=== PATIENT | female | born 1950 | race Caucasian/White ===

== ENCOUNTER 2016-11-18 18:04 | Emergency (ER) | payer MEDICARE, OTHER ==
[2016-11-18] MEDS ORDERED: SODIUM CHLORIDE 0.9% 1,000 ML IV STA (19:50)
[2016-11-18] MEDS ORDERED: ONDANSETRON 4 MG/2 ML VIAL IVP STA (19:50)
[2016-11-18] MEDS ORDERED: HYDROmorphone 1 MG/ML 1 ML SYRINGE IVP STA ×2 (19:50→20:02)
--- NOTE | 2016-11-18 20:39 | ED ---
Abdominal Pain HPI - General Chief Complaint: Abdominal Pain Stated Complaint: Abd pain Time Seen by Provider: 11/18/16 19:43 Source: patient, RN notes reviewed, old records reviewed Mode of arrival: wheelchair Limitations: no limitations - History of Present Illness Initial Comments: 65-year-old female presenting with chief complaint of left upper quadrant pain for the past day. Patient reports that she has a history of pancreatitis and feels very similar to that episode. She denies any vomiting or nausea. She states that the pain does not go to her back. Patient reports that she had a normal bowel movement today. She did eat last at noon. Patient states that she has no history of alcoholism. She states she does not know why she had pancreatitis in the past. She reports that she has history of but denies any other surgical history. Patient denies any fever or chills. Patient denies any recent fever, chills, shortness of breath, chest pain, back pain, abdominal pain, nausea vomiting, numbness or tingling, dysuria or hematuria, constipation or diarrhea, headaches or visual changes, or any other current symptoms - Related Data Home Medications Medication Instructions Recorded Confirmed Lisinopril-Hctz 20-12.5 mg 1 tab PO DAILY 09/19/13 11/18/16 [Zestoretic 20-12.5] Levothyroxine Sodium 100 mcg PO DAILY 11/18/16 11/18/16 Multivitamins, Thera [Multivitamin 1 tab PO DAILY 11/18/16 11/18/16 (formulary)] Previous Rx's Medication Instructions Recorded Ondansetron Odt [Zofran Odt] 4 mg PO Q8HR PRN #12 tab 11/18/16 Sucralfate [Carafate] 1 gm PO BID #20 tablet 11/18/16 Allergies Allergy/AdvReac Type Severity Reaction Status Date / Time hydromorphone HCl AdvReac Nausea & Verified 11/18/16 19:14 [From Dilaudid] Vomiting Review of Systems ROS Statement: Those systems with pertinent positive or pertinent negative responses have been documented in the HPI. ROS Other: All systems not noted in ROS Statement are negative. Past Medical History Past Medical History: Heart Failure, Hypertension Additional Past Medical History / Comment(s): PANCREATITIS, DEGENERATIVE DISC DISEASE History of Any Multi-Drug Resistant Organisms: MRSA Date of last positivie culture/infection: 6-7 YEARS MDRO Source:: RIGHT ABDOMEN Past Surgical History: Orthopedic Surgery, Tubal Ligation Past Psychological History: No Psychological Hx Reported Smoking Status: Never smoker Past Alcohol Use History: None Reported Past Drug Use History: None Reported General Exam Limitations: no limitations General appearance: alert, in no apparent distress Head exam: Present: atraumatic, normocephalic, normal inspection Eye exam: Present: normal appearance, PERRL, EOMI. Absent: scleral icterus, conjunctival injection, periorbital swelling ENT exam: Present: normal exam, mucous membranes moist Neck exam: Present: normal inspection. Absent: tenderness, meningismus, lymphadenopathy Respiratory exam: Present: normal lung sounds bilaterally. Absent: respiratory distress, wheezes, rales, rhonchi, stridor Cardiovascular Exam: Present: regular rate, normal rhythm, normal heart sounds. Absent: systolic murmur, diastolic murmur, rubs, gallop, clicks GI/Abdominal exam: Present: soft, tenderness (LUQ tenderness), normal bowel sounds. Absent: distended ( ), guarding, rebound, rigid Extremities exam: Present: normal inspection, full ROM, normal capillary refill. Absent: tenderness, pedal edema, joint swelling, calf tenderness Back exam: Present: normal inspection Neurological exam: Present: alert, oriented X3, CN II-XII intact Psychiatric exam: Present: normal affect, normal mood Skin exam: Present: warm, dry, intact, normal color. Absent: rash Course Vital Signs 11/18/16 11/18/16 11/18/16 18:12 21:20 21:57 Temperature 98.1 F Pulse Rate 102 H 67 82 Respiratory 20 16 16 Rate Blood Pressure 134/88 135/71 112/59 O2 Sat by Pulse 98 99 95 Oximetry 11/18/16 11/18/16 22:58 23:08 Temperature 97.9 F 98 F Pulse Rate 74 76 Respiratory 16 16 Rate Blood Pressure 120/70 97/56 O2 Sat by Pulse 95 98 Oximetry Medical Decision Making - Medical Decision Making 65-year-old female presenting with chief complaint of left upper quadrant pain for the past day. Patient reports that she has a history of pancreatitis and feels very similar to that episode. She denies any vomiting or nausea. She states that the pain does not go to her back. Patient reports that she had a normal bowel movement today. She did eat last at noon. Patient states that she has no history of alcoholism. She states she does not know why she had pancreatitis in the past. She reports that she has history of but denies any other surgical history. Patient lab work was reviewed, and there was evidence of mild leukocytosis. Patient recieved CT abdomen and pelvis, patient CT negative for any acute process. Patient is feeling better after medication. She was reevaluated and abdomen is soft, non tender. Patient will be discharged and adbised to follow up with PCP. - Lab Data Result diagrams: 11/18/16 20:26 11/18/16 20:26 Lab Results 11/18/16 11/18/16 11/18/16 Range/Units 20:26 20:26 20:26 WBC 15.1 H (3.8-10.6) k/uL RBC 4.94 (3.80-5.40) m/uL Hgb 14.9 (11.4-16.0) gm/dL Hct 44.9 (34.0-46.0) % MCV 91.1 (80.0-100.0) fL MCH 30.1 (25.0-35.0) pg MCHC 33.1 (31.0-37.0) g/dL RDW 13.8 (11.5-15.5) % Plt Count 224 (150-450) k/uL Neutrophils % 86 % Lymphocytes % 10 % Monocytes % 3 % Eosinophils % 0 % Basophils % 0 % Neutrophils # 12.9 H (1.3-7.7) k/uL Lymphocytes # 1.5 (1.0-4.8) k/uL Monocytes # 0.5 (0-1.0) k/uL Eosinophils # 0.0 (0-0.7) k/uL Basophils # 0.1 (0-0.2) k/uL Sodium 141 (137-145) mmol/L Potassium 4.4 (3.5-5.1) mmol/L Chloride 104 (98-107) mmol/L Carbon Dioxide 25 (22-30) mmol/L Anion Gap 12 mmol/L BUN 24 H (7-17) mg/dL Creatinine 1.05 H (0.52-1.04) mg/dL Est GFR (MDRD) Af Amer >60 (>60 ml/min/1.73 sqM) Est GFR (MDRD) Non-Af 53 (>60 ml/min/1.73 sqM) Glucose 121 H (74-99) mg/dL Calcium 9.5 (8.4-10.2) mg/dL Total Bilirubin 0.8 (0.2-1.3) mg/dL AST 31 (14-36) U/L ALT 35 (9-52) U/L Alkaline Phosphatase 106 (38-126) U/L Total Protein 7.6 (6.3-8.2) g/dL Albumin 3.9 (3.5-5.0) g/dL Amylase 46 (30-110) U/L Lipase 90 (23-300) U/L Urine Color Yellow Urine Appearance Clear (Clear) Urine pH 5.0 (5.0-8.0) Ur Specific [place] 1.014 (1.001-1.035) Urine Protein Negative (Negative) Urine Glucose (UA) Negative (Negative) Urine Ketones Negative (Negative) Urine Blood Negative (Negative) Urine Nitrite Negative (Negative) Urine Bilirubin Negative (Negative) Urine Urobilinogen <2.0 (<2.0) mg/dL Ur Leukocyte Esterase Negative (Negative) - Radiology Data Radiology results: report reviewed CT abdomen and pelvis with contrast are negative for anyacute process. Disposition Clinical Impression: Abdominal pain Disposition: HOME SELF-CARE Condition: Good Instructions: Abdominal Pain (ED) Additional Instructions: Patient advised to have a relatively clear liquid diet for the next 48 hours. Take the medication as prescribed. Return to the emergency department if any alarming signs or symptoms occur. Follow-up with her primary care provider on Monday. Prescriptions: Ondansetron Odt [Zofran Odt] 4 mg PO Q8HR PRN #12 tab PRN Reason: Nausea Sucralfate [Carafate] 1 gm PO BID #20 tablet Referrals: Vic Pollack DO [Primary Care Provider] - 1-2 days Taj Ochoa MD [STAFF PHYSICIAN] - 1-2 days Time of Disposition: 22:58
[2016-11-18 20:48] LABS: Appearance,Urine Clear (Clear); Basophils # (A) 0.1 k/uL (0-0.2); Basophils % (A) 0 %; Bilirubin,Urine Negative (Negative); CHCM 33.1; Eosinophils % (A) 0 %; Glucose,Urine (UA) Negative (Negative); HCT 44.9 % (34.0-46.0); HDW 2.33; HGB 14.9 gm/dL (11.4-16.0); Ketones,Urine Negative (Negative); Leukocyte Esterase,Urine Negative (Negative); Luc # (Auto) 0.11; Luc % (Auto) 1; Lymphocytes # (A) 1.5 k/uL (1.0-4.8); Lymphocytes % (A) 10 %; MCH 30.1 pg (25.0-35.0); MCHC 33.1 g/dL (31.0-37.0); MCV 91.1 fL (80.0-100.0); Mean Platelet Volume 8.9; Monocytes # (A) 0.5 k/uL (0-1.0); Monocytes % (A) 3 %; Neutrophils # (A) 12.9 k/uL (1.3-7.7); Neutrophils % (A) 86 %; Nitrite,Urine Negative (Negative); Protein,Urine Negative (Negative); RBC 4.94 m/uL (3.80-5.40); RDW 13.8 % (11.5-15.5); Specific Gravity,Urine 1.014 (1.001-1.035); UA Billing (MACRO vs. MICRO) CHEM; Urobilinogen,Urine <2.0 mg/dL (<2.0); WBC 15.1 k/uL (3.8-10.6); WBC (Perox) 13.87
[2016-11-18 20:56] LABS: ALT 35 U/L (9-52); AST 31 U/L (14-36); Alkaline Phosphatase 106 U/L (38-126); Amylase 46 U/L (30-110); Anion Gap 12 mmol/L; Blood Urea Nitrogen 24 mg/dL (7-17); Calcium 9.5 mg/dL (8.4-10.2); Carbon Dioxide 25 mmol/L (22-30); Chloride 104 mmol/L (98-107); Glucose 121 mg/dL (74-99); Non-African American GFR(MDRD) 53 (>60 ml/min/1.73 sqM); Potassium 4.4 mmol/L (3.5-5.1); Sodium 141 mmol/L (137-145); Total Bilirubin 0.8 mg/dL (0.2-1.3); Total Protein 7.6 g/dL (6.3-8.2)
[2016-11-18] MEDS ORDERED: RX INFO: IV CONTRAST WAS GIVEN 1 EACH MISC MISCELLANE PRN (21:00)
[2016-11-18] MEDS ORDERED: ACETAMINOPHEN TAB 500 MG TAB PO STA (21:03)
--- NOTE | 2016-11-18 21:04 | XR ---
EXAMINATION TYPE: XR KUB DATE OF EXAM: 11/18/2016 COMPARISON: 08/12/2009 HISTORY: Abdominal pain TECHNIQUE: 2 views FINDINGS: There is thoracolumbar dextroscoliosis. Bowel gas pattern is normal. There is no sign of in testinal obstruction or pneumoperitoneum. Fecal pattern is normal. There are no pathologic calcificat ions over the kidneys. IMPRESSION: Nonacute abdomen. No change. Scoliotic deformity.
[2016-11-18] MEDS ORDERED: SODIUM CHLORIDE 0.9% 1,000 ML IV SCH (21:15)
[2016-11-18 21:21] VITALS: RESP 16
--- NOTE | 2016-11-18 22:06 | CT ---
EXAMINATION TYPE: CT abdomen pelvis w con DATE OF EXAM: 11/18/2016 COMPARISON: NONE HISTORY: Left side abdominal pain and nausea. CT DLP: 2049.3 mGycm Automated exposure control for dose reduction was used. TECHNIQUE: Helical acquisition of images was performed from the lung bases through the pelvis. CONTRAST: Performed without Oral Contrast and with IV Contrast, patient injected with 80 mL of Visipaque 320. FINDINGS: Lung bases are clear of consolidation. There is no pleural effusion. There is a hiatal hernia. Liver spleen pancreas gallbladder appear normal. Bile ducts are not dilated. There is no adrenal mass . Kidneys show satisfactory contrast opacification. There is no hydronephrosis. There is a 2.5 cm cor tical cyst on the left kidney. There is no retroperitoneal adenopathy. Bladder distends smoothly. I s ee no intestinal wall thickening. There are no dilated loops. Appendix appears normal. I see no bony destructive process. There is thoracolumbar scoliotic deformity. IMPRESSION: SCOLIOTIC DEFORMITY. HIATAL HERNIA. LEFT RENAL CORTICAL CYST. NO SIGN OF ACUTE ABDOMEN AND PELVIS.
[2016-11-18 23:11] VITALS: BP 97/56; PULSE 76; TEMP 98
== END 2016-11-18 23:11 | disposition home or self-care (01) ==
LOC: EC 18:04
DX: R10.12 Left upper quadrant pain (principal); I10 Essential (primary) hypertension; I50.9 Heart failure, unspecified; Z79.899 Other long term (current) drug therapy; Z88.5 Allergy status to narcotic agent
CPT/HCPCS: 36415; 80053; 82150; 83690; 85025; 81003; 74000; 74177; 99284; 96374; 96375; 96361; Q9967; J2405; J1170

== ENCOUNTER → 2016-12-16 | Outpatient (CLI) | payer MEDICARE, OTHER ==
--- NOTE | 2016-12-20 06:56 | MM ---
Reason for exam: screening (asymptomatic). Last mammogram was performed 18 years and 8 months ago. History: Patient is postmenopausal. Physical Findings: A clinical breast exam by your physician is recommended on an annual basis and results should be correlated with mammographic findings. MG Screening Mammo w CAD Bilateral CC and MLO view(s) were taken. There are scattered fibroglandular densities. Finding: There are a few typically benign round calcifications in both breasts. There is no discrete abnormality. ASSESSMENT: Negative, BI-RAD 1 RECOMMENDATION: Routine screening mammogram of both breasts in 1 year.
== END | disposition home or self-care (01) ==
LOC: RADMAMWWP 12:42
PROVIDERS: ATTEND Family Medicine
DX: Z12.31 Encounter for screening mammogram for malignant neoplasm of breast (principal)

== ENCOUNTER 2017-04-05 10:19 | Emergency (ER) | payer MEDICARE, OTHER ==
[2017-04-05 10:23] VITALS: RESP 16; TEMP 97.4
[2017-04-05] MEDS ORDERED: ORPHENADRINE 30 MG/ML 2 ML VIAL IM STA (10:41)
[2017-04-05] MEDS ORDERED: KETOROLAC 60 MG/2 ML VIAL IM STA (10:41)
--- NOTE | 2017-04-05 10:46 | ED ---
General Adult HPI - General Chief complaint: Back Pain/Injury Stated complaint: back pain, poss pulled muscle Time Seen by Provider: 04/05/17 10:35 Source: patient, RN notes reviewed Mode of arrival: wheelchair Limitations: physical limitation - History of Present Illness Initial comments: 66-year-old female presents to the emergency department with a chief complaint of upper right-sided back pain. She was lifting a heavy box and she felt a pull in her back. She has had this before and states it feels much like her typical back pain when she pulls her back. She denies any falls traumas or injuries. She denies a loss by bladder function or any saddle anesthesia. The patient was concerned due to the fact that she was having a pulling in her back so she thought that she should be evaluated. Patient denies any recent fever, chills, shortness of breath, chest pain, abdominal pain, nausea vomiting, numbness or tingling, dysuria or hematuria, constipation or diarrhea, headaches or visual changes, or any other current symptoms. - Related Data Home Medications Medication Instructions Recorded Confirmed Lisinopril-Hctz 20-12.5 mg 1 tab PO DAILY 09/19/13 04/05/17 [Zestoretic 20-12.5] Levothyroxine Sodium 100 mcg PO DAILY 11/18/16 04/05/17 Multivitamins, Thera [Multivitamin 1 tab PO DAILY 11/18/16 04/05/17 (formulary)] Ferrous Sulfate [Feosol] 325 mg PO DAILY 04/05/17 04/05/17 Previous Rx's Medication Instructions Recorded Ibuprofen [Motrin] 600 mg PO Q6HR PRN #20 tab 04/05/17 Orphenadrine [Norflex] 100 mg PO Q12H #10 tablet.er 04/05/17 Allergies Allergy/AdvReac Type Severity Reaction Status Date / Time hydromorphone HCl AdvReac Nausea & Verified 04/05/17 10:49 [From Dilaudid] Vomiting Review of Systems ROS Statement: Those systems with pertinent positive or pertinent negative responses have been documented in the HPI. ROS Other: All systems not noted in ROS Statement are negative. Past Medical History Past Medical History: Heart Failure, Hypertension Additional Past Medical History / Comment(s): PANCREATITIS, DEGENERATIVE DISC DISEASE History of Any Multi-Drug Resistant Organisms: MRSA Date of last positivie culture/infection: 6-7 YEARS MDRO Source:: RIGHT ABDOMEN Past Surgical History: Orthopedic Surgery, Tubal Ligation Past Psychological History: No Psychological Hx Reported Smoking Status: Never smoker Past Alcohol Use History: None Reported Past Drug Use History: None Reported General Exam - General Exam Comments Initial Comments: General: The patient is awake and alert, in no distress, and does not appear acutely ill. Eye: Pupils are equal, round and reactive to light, extra-ocular movements are intact; there is normal conjunctiva bilaterally. No signs of icterus. Ears, nose, mouth and throat: There are moist mucous membranes. Neck: The neck is supple, there is no tenderness. Cardiovascular: There is a regular rate and rhythm. No murmur, rub or gallop is appreciated. Respiratory: Lungs are clear to auscultation, respirations are non-labored, breath sounds are equal. No wheezes, stridor, rales, or rhonchi. Back: There is no tenderness to palpation in the midline. There is no obvious deformity. No rashes noted. Muscle spasm in the right flank region into the upper thoracic area. Musculoskeletal: Normal ROM, no tenderness, There is no pedal edema. There is no calf tenderness or swelling. Sensation intact. Pulses equal bilaterally 2+. Neurological: CN II-XII intact, There are no obvious motor or sensory deficits. Coordination appears grossly intact. Speech is normal. Skin: Skin is warm and dry and no rashes or lesions are noted. Psychiatric: Cooperative, appropriate mood & affect, normal judgment. Limitations: physical limitation Course Vital Signs 04/05/17 10:20 Temperature 97.4 F L Pulse Rate 76 Respiratory 16 Rate Blood Pressure 135/64 O2 Sat by Pulse 99 Oximetry Medical Decision Making - Medical Decision Making 66 yo female presents with what appears to be a right-sided muscle spasm. At this time x-rays reviewed and negative. We'll start patient muscle axes for home. We did discuss heat to the area and follow-up and all questions have been answered. At this time patient will be discharged home. - Radiology Data Radiology results: report reviewed, image reviewed Disposition Clinical Impression: Strain of muscle at thorax level Disposition: HOME SELF-CARE Condition: Stable Instructions: Muscle Spasm (ED) Additional Instructions: Please use medication as discussed. Please follow up with family doctor if symptoms have not improved over the next two days. Please return to the emergency room if your symptoms increase or worsen or for any other concerns. Prescriptions: Ibuprofen [Motrin] 600 mg PO Q6HR PRN #20 tab PRN Reason: Pain Orphenadrine [Norflex] 100 mg PO Q12H #10 tablet.er Referrals: Vic Pollack DO [Primary Care Provider] - 1-2 days Time of Disposition: 11:46
--- NOTE | 2017-04-05 11:24 | XR ---
EXAMINATION TYPE: XR thoracic spine 2V DATE OF EXAM: 04/05/2017 CLINICAL HISTORY: Pain after lifting injury. TECHNIQUE: Frontal, lateral, and swimmer's view of thoracic spine are obtained. COMPARISON: CT abdomen November 18, 2016 FINDINGS: Thoracic spine redemonstrates dextroconvex scoliosis or scoliotic positioning centered in t he upper lumbar spine without evidence of acute fracture or dislocation. Vertebral body heights and disc space heights are preserved. Visualized ribs and pedicles are unremarkable. IMPRESSION: No acute fracture or dislocation is seen in the thoracic spine.
[2017-04-05 12:07] VITALS: BP 119/71; PULSE 67
== END 2017-04-05 12:06 | disposition home or self-care (01) ==
LOC: EC 10:19
DX: S29.012A Strain of muscle and tendon of back wall of thorax, initial encounter (principal); I11.0 Hypertensive heart disease with heart failure; I50.9 Heart failure, unspecified; Z86.14 Personal history of Methicillin resistant Staphylococcus aureus infection; Z88.5 Allergy status to narcotic agent; Z79.899 Other long term (current) drug therapy; X50.0XXA Overexertion from strenuous movement or load, initial encounter; Y93.89 Activity, other specified
CPT/HCPCS: 99283; 96372 ×2; 72070; J2360; J1885

== ENCOUNTER 2017-09-10 15:14 | Emergency (ER) | payer MEDICARE, OTHER ==
[2017-09-10] MEDS ORDERED: IPRATROPIUM-ALBUTEROL 3 ML NEB INHALATION STA (15:23)
--- NOTE | 2017-09-10 15:27 | ED ---
General Adult HPI - General Chief complaint: Chest Pain Stated complaint: Chest pain Time Seen by Provider: 09/10/17 15:15 Source: patient, EMS, RN notes reviewed Mode of arrival: EMS Limitations: no limitations - History of Present Illness Initial comments: This is a 66-year-old female who presents emergency department stating that at noon today she started becoming short of breath. Patient states she also was having chest pain anytime she coughed. Patient states when she is not coughing she has no chest pain. Patient denies any sputum production. Patient denies any underlying breathing problems. Patient denies any diabetes or high cholesterol but she does have high blood pressure history. Patient states she' s had no fever but occasionally had a little bit of a chill. Patient states she had a breathing treatment on the way in even though she is significantly improved from when she was at her house before she called the ambulance she doesn't believe the breathing treatment helped but she can't identify why she is improved since then. Patient denies any headache patient denies numbness weakness. Patient denies lightheadedness or dizziness. Patient denies abdominal pain patient denies nausea vomiting diarrhea. - Related Data Home Medications Medication Instructions Recorded Confirmed Lisinopril-Hctz 20-12.5 mg 1 tab PO DAILY 09/19/13 09/10/17 [Zestoretic 20-12.5] Levothyroxine Sodium 100 mcg PO DAILY 11/18/16 09/10/17 Previous Rx's Medication Instructions Recorded Albuterol Inhaler [Ventolin Hfa 1 - 2 puff INHALATION Q6HR PRN #2 09/10/17 Inhaler] puff Azithromycin [Zithromax Tri-Nain] 500 mg PO DAILY #3 tab 09/10/17 Allergies Allergy/AdvReac Type Severity Reaction Status Date / Time hydromorphone HCl AdvReac Nausea & Verified 09/10/17 16:34 [From Dilaudid] Vomiting Review of Systems ROS Statement: Those systems with pertinent positive or pertinent negative responses have been documented in the HPI. ROS Other: All systems not noted in ROS Statement are negative. Past Medical History Past Medical History: Heart Failure, Hypertension Additional Past Medical History / Comment(s): PANCREATITIS, DEGENERATIVE DISC DISEASE History of Any Multi-Drug Resistant Organisms: MRSA Date of last positivie culture/infection: 6-7 YEARS MDRO Source:: RIGHT ABDOMEN Past Surgical History: Orthopedic Surgery, Tubal Ligation Past Psychological History: No Psychological Hx Reported Smoking Status: Never smoker Past Alcohol Use History: None Reported Past Drug Use History: None Reported General Exam - General Exam Comments Initial Comments: GENERAL: Patient is well-developed and well-nourished. Patient is nontoxic and well- hydrated and is in mild distress. ENT: Neck is soft and supple. No significant lymphadenopathy is noted. Oropharynx is clear. Moist mucous membranes. Neck has full range of motion without eliciting any pain. EYES: The sclera were anicteric and conjunctiva were pink and moist. Extraocular movements were intact and pupils were equal round and reactive to light. Eyelids were unremarkable. PULMONARY: Slight expiratory wheeze CARDIOVASCULAR: There is a regular rate and rhythm without any murmurs gallops or rubs. Femoral pulses are equal bilaterally ABDOMEN: Soft and nontender with normal bowel sounds. No palpable organomegaly was noted. There is no palpable pulsatile mass. SKIN: Skin is clear with no lesions or rashes and otherwise unremarkable. NEUROLOGIC: Patient is alert and oriented x3. Cranial nerves II through XII are grossly intact. Motor and sensory are also intact. Normal speech, volume and content. Symmetrical smile. MUSCULOSKELETAL: Normal extremities with adequate strength and full range of motion. LYMPHATICS: No significant lymphadenopathy is noted PSYCHIATRIC: Normal psychiatric evaluation. Limitations: no limitations Course Vital Signs 09/10/17 09/10/17 09/10/17 15:17 15:29 16:05 Temperature 98.5 F Pulse Rate 81 78 Respiratory 18 20 18 Rate Blood Pressure 148/74 O2 Sat by Pulse 96 Oximetry 09/10/17 16:11 Temperature Pulse Rate 89 Respiratory 18 Rate Blood Pressure 146/68 O2 Sat by Pulse 98 Oximetry Medical Decision Making - Medical Decision Making EKG shows normal sinus rhythm at [address] interval is 160 QRS is 80 QT interval 364 QTC is 425. Patient's EKG shows no ST segment elevation or depression or T wave abnormalities are noted. I evaluated the patient again asked her about chest pain. Patient states she is not having chest pain unless she is coughing. Patient's chest x-ray shows no acute abnormality. After the breathing treatment the patient received the emergency department she stated her shortness of breath was completely resolved. She'll follow-up with Dr. Pollack tomorrow. - Lab Data Result diagrams: 09/10/17 15:29 09/10/17 15:29 Lab Results 09/10/17 09/10/17 09/10/17 Range/Units 15:29 15:29 15:29 WBC 7.0 (3.8-10.6) k/uL RBC 5.02 (3.80-5.40) m/uL Hgb 14.1 (11.4-16.0) gm/dL Hct 43.8 (34.0-46.0) % MCV 87.4 (80.0-100.0) fL MCH 28.1 (25.0-35.0) pg MCHC 32.1 (31.0-37.0) g/dL RDW 13.9 (11.5-15.5) % Plt Count 170 (150-450) k/uL Neutrophils % 75 % Lymphocytes % 15 % Monocytes % 6 % Eosinophils % 1 % Basophils % 0 % Neutrophils # 5.2 (1.3-7.7) k/uL Lymphocytes # 1.1 (1.0-4.8) k/uL Monocytes # 0.4 (0-1.0) k/uL Eosinophils # 0.1 (0-0.7) k/uL Basophils # 0.0 (0-0.2) k/uL Sodium 143 (137-145) mmol/L Potassium 4.3 (3.5-5.1) mmol/L Chloride 105 (98-107) mmol/L Carbon Dioxide 24 (22-30) mmol/L Anion Gap 14 mmol/L BUN 22 H (7-17) mg/dL Creatinine 1.04 (0.52-1.04) mg/dL Est GFR (CKD-EPI)AfAm 65 (>60 ml/min/1.73 sqM) Est GFR (CKD-EPI)NonAf 56 (>60 ml/min/1.73 sqM) Glucose 107 H (74-99) mg/dL Calcium 9.0 (8.4-10.2) mg/dL Magnesium 2.0 (1.6-2.3) mg/dL Total Bilirubin 0.5 (0.2-1.3) mg/dL AST 26 (14-36) U/L ALT 31 (9-52) U/L Alkaline Phosphatase 93 (38-126) U/L NT-Pro-B Natriuret Pep 248 pg/mL Total Protein 7.0 (6.3-8.2) g/dL Albumin 3.8 (3.5-5.0) g/dL Disposition Clinical Impression: Bronchitis Disposition: HOME SELF-CARE Condition: Good Instructions: Acute Bronchitis (ED) Prescriptions: Albuterol Inhaler [Ventolin Hfa Inhaler] 1 - 2 puff INHALATION Q6HR PRN #2 puff PRN Reason: Difficulty breathing Azithromycin [Zithromax Tri-Nain] 500 mg PO DAILY #3 tab Is patient prescribed a controlled substance at d/c from ED?: No Referrals: Vic Pollack DO [Primary Care Provider] - 1-2 days Time of Disposition: 16:42
[2017-09-10 15:48] LABS: Basophils % (A) 0 %; Eosinophils # (A) 0.1 k/uL (0-0.7); Eosinophils % (A) 1 %; HCT 43.8 % (34.0-46.0); HGB 14.1 gm/dL (11.4-16.0); Lymphocytes # (A) 1.1 k/uL (1.0-4.8); Lymphocytes % (A) 15 %; MCH 28.1 pg (25.0-35.0); MCHC 32.1 g/dL (31.0-37.0); MCV 87.4 fL (80.0-100.0); Monocytes # (A) 0.4 k/uL (0-1.0); Monocytes % (A) 6 %; Neutrophils # (A) 5.2 k/uL (1.3-7.7); Neutrophils % (A) 75 %; Platelet Count 170 k/uL (150-450); RBC 5.02 m/uL (3.80-5.40); RDW 13.9 % (11.5-15.5)
[2017-09-10 15:49] LABS: Albumin 3.8 g/dL (3.5-5.0); Potassium 4.3 mmol/L (3.5-5.1); Total Bilirubin 0.5 mg/dL (0.2-1.3)
--- NOTE | 2017-09-10 15:50 | XR ---
EXAMINATION TYPE: XR chest 2V DATE OF EXAM: 09/10/2017 COMPARISON: 11/19/2015 HISTORY: Chest pain TECHNIQUE: Frontal and lateral views of the chest are obtained. FINDINGS: There is no focal air space opacity. No evidence for pneumothorax. No pleural effusion. The cardiac silhouette size is within normal limits. The osseous structures are grossly intact. IMPRESSION: 1. No acute cardiopulmonary process.
[2017-09-10 16:06] VITALS: RESP 18
[2017-09-10 16:55] VITALS: BP 127/61; PULSE 82; TEMP 97
== END 2017-09-10 16:55 | disposition home or self-care (01) ==
LOC: EC 15:14
DX: J40 Bronchitis, not specified as acute or chronic (principal); I11.0 Hypertensive heart disease with heart failure; I50.9 Heart failure, unspecified; Z86.14 Personal history of Methicillin resistant Staphylococcus aureus infection; Z88.5 Allergy status to narcotic agent; Z79.899 Other long term (current) drug therapy
CPT/HCPCS: 36415; 71046; 80053; 83735; 83880; 85025; 87040; 94640; 99285

== ENCOUNTER 2019-11-22 14:17 | Emergency (ER) | payer MEDICARE, OTHER ==
[2019-11-22 14:29] VITALS: BP 132/81; PULSE 82; RESP 18; TEMP 98.7
--- NOTE | 2019-11-22 14:55 | ED ---
Lower Extremity Injury HPI - General Chief Complaint: Extremity Injury, Lower Stated Complaint: swollen right foot Time Seen by Provider: 11/22/19 14:34 Source: patient, RN notes reviewed, old records reviewed Mode of arrival: wheelchair Limitations: no limitations - History of Present Illness Initial Comments: This is a 60-year-old female DF. Patient Dese for evaluation of right foot pain right great toe pain. Patient has multiple surgeries on her feet and toes secondary to bunion's bone formation. Patient states right toe redness started yesterday increasing today increasing pain she is able to ambulate denies any trauma. No redness or fevers streaking up her leg. MD Complaint: other (Right great toe) -: days(s) Injury: Toes: Right (Great) Place: home Severity: moderate Severity scale (1-10): 3 Improves With: nothing Worsens With: weight bearing Context: other (No trauma) Associated Symptoms: able to partially bear weight - Related Data Home Medications Medication Instructions Recorded Confirmed Lisinopril-Hctz 20-12.5 mg 1 tab PO DAILY 09/19/13 09/10/17 [Zestoretic 20-12.5] Levothyroxine Sodium 100 mcg PO DAILY 11/18/16 09/10/17 Previous Rx's Medication Instructions Recorded Albuterol Inhaler (Mhu) [Ventolin 1 - 2 puff INHALATION Q6HR PRN #2 09/10/17 Hfa Inhaler (Mhu)] puff Azithromycin [Zithromax Tri-Nain] 500 mg PO DAILY #3 tab 09/10/17 Allergies Allergy/AdvReac Type Severity Reaction Status Date / Time hydromorphone HCl AdvReac Nausea & Verified 09/10/17 16:34 [From Dilaudid] Vomiting Review of Systems ROS Statement: Those systems with pertinent positive or pertinent negative responses have been documented in the HPI. ROS Other: All systems not noted in ROS Statement are negative. Past Medical History Past Medical History: Heart Failure, Hypertension Additional Past Medical History / Comment(s): PANCREATITIS, DEGENERATIVE DISC DISEASE History of Any Multi-Drug Resistant Organisms: MRSA Date of last positivie culture/infection: 6-7 YEARS MDRO Source:: RIGHT ABDOMEN Past Surgical History: Orthopedic Surgery, Tubal Ligation Past Psychological History: No Psychological Hx Reported Smoking Status: Never smoker Past Alcohol Use History: None Reported Past Drug Use History: None Reported General Exam - General Exam Comments Initial Comments: Patient appears to have a large right great toe gouty tophus tenderness Limitations: no limitations General appearance: alert, in no apparent distress Head exam: Present: atraumatic, normocephalic, normal inspection Eye exam: Present: normal appearance, PERRL, EOMI. Absent: scleral icterus, conjunctival injection, periorbital swelling ENT exam: Present: normal exam, mucous membranes moist Neck exam: Present: normal inspection. Absent: tenderness, meningismus, lymphadenopathy Respiratory exam: Present: normal lung sounds bilaterally. Absent: respiratory distress, wheezes, rales, rhonchi, stridor Cardiovascular Exam: Present: regular rate, normal rhythm, normal heart sounds. Absent: systolic murmur, diastolic murmur, rubs, gallop, clicks GI/Abdominal exam: Present: soft, normal bowel sounds. Absent: distended, tenderness, guarding, rebound, rigid Extremities exam: Present: normal inspection, full ROM, normal capillary refill. Absent: tenderness, pedal edema, joint swelling, calf tenderness Back exam: Present: normal inspection Neurological exam: Present: alert, oriented X3, CN II-XII intact Psychiatric exam: Present: normal affect, normal mood Skin exam: Present: warm, dry, intact, normal color. Absent: rash Course Vital Signs 11/22/19 14:25 Temperature 98.7 F Pulse Rate 82 Respiratory 18 Rate Blood Pressure 132/81 O2 Sat by Pulse 98 Oximetry - Reevaluation(s) Reevaluation #1: 11/22/19 15:08 Medical records reviewed Reevaluation #2: 11/22/19 15:08 Symptoms currently improved Medical Decision Making - Medical Decision Making 60 female Olnea with right great toe pain and redness, gouty tophus noted on exam. Patient to be discharged - Radiology Data Radiology results: report reviewed (X-ray R foot with is negative for acute disease), image reviewed Disposition Clinical Impression: Gouty arthritis of right great toe, Cellulitis Disposition: HOME SELF-CARE Condition: Good Instructions (If sedation given, give patient instructions): Gout (ED), Cellulitis (ED) Is patient prescribed a controlled substance at d/c from ED?: No Referrals: Vic Pollack DO [Primary Care Provider] - 1-2 days
--- NOTE | 2019-11-22 15:02 | XR ---
EXAMINATION TYPE: XR foot complete RT DATE OF EXAM: 11/22/2019 COMPARISON: NONE HISTORY: foot pain TECHNIQUE: Three views are submitted. FINDINGS: The osseous structures are intact. There is no acute fracture or dislocation. There is severe arth ropathy first MTP joint with hypertrophic changes. Arthropathy of the PIP joint of the third digit an d fifth digit noted. Large plantar calcaneal spur. IMPRESSION: 1. No acute fracture or dislocation. If symptoms persist, follow-up exam in 7 to 10 days could be ob tained. 2. Arthropathy. Calcaneal spurs.
[2019-11-22] MEDS ORDERED: CEPHALEXIN 500 MG CAP PO STA (15:09)
[2019-11-22] MEDS ORDERED: CEPHALEXIN 500MG STARTER PACK 4 CAP BTL PO STA (15:09)
[2019-11-22] MEDS ORDERED: KETOROLAC 60 MG/2 ML VIAL IM STA (15:09)
== END 2019-11-22 15:27 | disposition home or self-care (01) ==
LOC: EC 14:17
DX: M10.071 Idiopathic gout, right ankle and foot (principal); L03.115 Cellulitis of right lower limb; I11.0 Hypertensive heart disease with heart failure; I50.9 Heart failure, unspecified; Z79.899 Other long term (current) drug therapy; Z88.5 Allergy status to narcotic agent; Z86.14 Personal history of Methicillin resistant Staphylococcus aureus infection
CPT/HCPCS: 73630; 96372; 99284; J1885

== ENCOUNTER 2019-12-24 14:42 | Emergency (ER) | payer MEDICARE, OTHER ==
[2019-12-24 14:47] VITALS: TEMP 98.1
--- NOTE | 2019-12-24 15:40 | ED ---
General Adult HPI - General Chief complaint: Neuro Symptoms/Deficit Stated complaint: L Arm Pain Time Seen by Provider: 12/24/19 14:49 Source: patient Mode of arrival: ambulatory Limitations: no limitations - History of Present Illness Initial comments: Patient is a 69-year-old female, history of hypertension, thyroid disease, presenting to the emergency Department with complaints of left arm pain that has been intermittent for the past week. Patient denies any injuries or trauma. She states she talked to her neighbor about her arm pain and her neighbor stated that "you had a stroke and need to go to the ER", so patient came in to be seen. Patient denies having a headache, blurry vision, weakness into her extremities. Patient said daughter is here with her now and also states patient has been normal. She states the pain has been going from the left side of her neck down into her left arm. She states once in a while she gets a burning sensation in her arm as well. She states she has been able to use her shoulder and arm as normal, has normal range of motion. She denies any previous surgeries. She denies any chest pain, shortness of breath, fever, chills. She denies any urinary complaints. Patient states she has no further complaints at this time. Upon arrival to the ER, her vital signs are stable. - Related Data Home Medications Medication Instructions Recorded Confirmed Lisinopril-Hctz 20-12.5 mg 1 tab PO DAILY 09/19/13 09/10/17 [Zestoretic 20-12.5] Levothyroxine Sodium 100 mcg PO DAILY 11/18/16 09/10/17 Previous Rx's Medication Instructions Recorded Albuterol Inhaler (Mhu) [Ventolin 1 - 2 puff INHALATION Q6HR PRN #2 09/10/17 Hfa Inhaler (Mhu)] puff Azithromycin [Zithromax Tri-Nain] 500 mg PO DAILY #3 tab 09/10/17 Cephalexin [Keflex] 500 mg PO Q6HR #28 cap 11/22/19 Indomethacin [Indocin] 50 mg PO BID #20 capsule 11/22/19 Allergies Allergy/AdvReac Type Severity Reaction Status Date / Time hydromorphone HCl AdvReac Nausea & Verified 09/10/17 16:34 [From Dilaudid] Vomiting Review of Systems ROS Statement: Those systems with pertinent positive or pertinent negative responses have been documented in the HPI. ROS Other: All systems not noted in ROS Statement are negative. Past Medical History Past Medical History: Heart Failure, Hypertension Additional Past Medical History / Comment(s): PANCREATITIS, DEGENERATIVE DISC DISEASE History of Any Multi-Drug Resistant Organisms: MRSA Date of last positivie culture/infection: 6-7 YEARS MDRO Source:: RIGHT ABDOMEN Past Surgical History: Orthopedic Surgery, Tubal Ligation Past Psychological History: No Psychological Hx Reported Smoking Status: Never smoker Past Alcohol Use History: None Reported Past Drug Use History: None Reported General Exam - General Exam Comments Initial Comments: GENERAL: Patient is well-developed and well-nourished. Patient is nontoxic and in no acute distress. HEAD: Atraumatic, normocephalic. EYES: Pupils equal round and reactive to light, extraocular movements intact, sclera anicteric, conjunctiva are normal. Eyelids were unremarkable. ENT: TMs normal, nares patent, oropharynx clear without exudates. Moist mucous membranes. NECK: Normal range of motion, supple without lymphadenopathy or JVD. Mild pain with palpation of the left cervical paraspinals, left upper trapezius. LUNGS: Unlabored respirations. Breath sounds clear to auscultation bilaterally and equal. No wheezes rales or rhonchi. HEART: Regular rate and rhythm without murmurs, rubs or gallops. ABDOMEN: Soft, nontender, normoactive bowel sounds. No guarding, no rebound. No masses appreciated. : Deferred MUSCULOSKELETAL: Normal extremities with adequate strength and normal range of motion, no pitting or edema. No clubbing or cyanosis. Patient has 5 out of 5 strength in upper and lower extremities bilaterally, sensation is also equal and bilateral. NEUROLOGICAL: Patient is alert and oriented x 3. Motor and sensory are also intact. Cranial nerves II through XII grossly intact. Normal speech, normal gait. Symmetrical smile. PSYCH: Normal mood, normal affect. SKIN: Warm, Dry, normal turgor, no rashes or lesions noted. Limitations: no limitations Course Vital Signs 12/24/19 12/24/19 14:45 16:55 Temperature 98.1 F Pulse Rate 94 80 Respiratory 16 14 Rate Blood Pressure 155/71 135/78 O2 Sat by Pulse 97 98 Oximetry EKG Findings - EKG Comments: EKG Findings:: Normal sinus rhythm, no signs of acute ischemia. Similar to previous EKG on 09/10/2017. Ventricular rate 63, NH interval 170, QT 406. Medical Decision Making - Medical Decision Making Patient is a 69-year-old female here for left arm pain as been intermittent for the past week. Her vitals are stable. Her exam is unremarkable, no neural deficits. She has some mild pain with palpation of the left cervical paraspinals, left upper trapezius. EKG shows normal sinus rhythm, no signs of acute ischemia. Blood work is within normal limits, troponin is negative. I discussed with patient this is most likely related to muscle skeletal spasm. I did recommend heat to the area, gentle stretching, massage. Patient is also having trouble with her right ear which has cerumen impaction, I did recommend Debrox drops, I do not see any signs of infection. Patient is stable for discharge and she's agreement with this plan of care. Strict return parameters were discussed with the patient she verbalized understanding. Case discussed with Dr. Sarmiento. - Lab Data Result diagrams: 12/24/19 15:52 12/24/19 15:52 Lab Results 12/24/19 12/24/19 12/24/19 Range/Units 15:52 15:52 15:52 WBC 11.7 H (3.8-10.6) k/uL RBC 4.78 (3.80-5.40) m/uL Hgb 13.8 (11.4-16.0) gm/dL Hct 44.0 (34.0-46.0) % MCV 92.1 (80.0-100.0) fL MCH 28.9 (25.0-35.0) pg MCHC 31.4 (31.0-37.0) g/dL RDW 13.7 (11.5-15.5) % Plt Count 221 (150-450) k/uL Neutrophils % 83 % Lymphocytes % 10 % Monocytes % 4 % Eosinophils % 1 % Basophils % 1 % Neutrophils # 9.7 H (1.3-7.7) k/uL Lymphocytes # 1.2 (1.0-4.8) k/uL Monocytes # 0.5 (0-1.0) k/uL Eosinophils # 0.2 (0-0.7) k/uL Basophils # 0.1 (0-0.2) k/uL Sodium 140 (137-145) mmol/L Potassium 4.9 (3.5-5.1) mmol/L Chloride 105 (98-107) mmol/L Carbon Dioxide 28 (22-30) mmol/L Anion Gap 7 mmol/L BUN 23 H (7-17) mg/dL Creatinine 1.24 H (0.52-1.04) mg/dL Est GFR (CKD-EPI)AfAm 51 (>60 ml/min/1.73 sqM) Est GFR (CKD-EPI)NonAf 44 (>60 ml/min/1.73 sqM) Glucose 96 (74-99) mg/dL Calcium 9.2 (8.4-10.2) mg/dL Troponin I <0.012 (0.000-0.034) ng/mL Disposition Clinical Impression: Strain of cervical portion of left trapezius muscle, Right ear impacted cerumen Disposition: HOME SELF-CARE Condition: Stable Instructions (If sedation given, give patient instructions): Cervical Strain (ED) Additional Instructions: Please return to the Emergency Department if symptoms worsen or any other concerns. Recommend heat, massage, gentle stretching to the neck area. I also recommend Debrox drops for ear wax softening. Follow-up with PCP. Is patient prescribed a controlled substance at d/c from ED?: No Referrals: Vic Pollack DO [Primary Care Provider] - 1-2 days
[2019-12-24 16:01] LABS: Basophils # (A) 0.1 k/uL (0-0.2); Basophils % (A) 1 %; Eosinophils # (A) 0.2 k/uL (0-0.7); Eosinophils % (A) 1 %; HGB 13.8 gm/dL (11.4-16.0); Lymphocytes # (A) 1.2 k/uL (1.0-4.8); Lymphocytes % (A) 10 %; MCH 28.9 pg (25.0-35.0); MCHC 31.4 g/dL (31.0-37.0); MCV 92.1 fL (80.0-100.0); Mean Platelet Volume 9.2; Monocytes # (A) 0.5 k/uL (0-1.0); Monocytes % (A) 4 %; Neutrophils # (A) 9.7 k/uL (1.3-7.7); Neutrophils % (A) 83 %; Platelet Count 221 k/uL (150-450); RBC 4.78 m/uL (3.80-5.40); RDW 13.7 % (11.5-15.5); WBC 11.7 k/uL (3.8-10.6)
[2019-12-24 16:11] LABS: Calcium 9.2 mg/dL (8.4-10.2); Potassium 4.9 mmol/L (3.5-5.1)
[2019-12-24 16:59] VITALS: BP 135/78; PULSE 80; RESP 14
== END 2019-12-24 16:55 | disposition home or self-care (01) ==
LOC: EC 14:42
DX: S16.1XXA Strain of muscle, fascia and tendon at neck level, initial encounter (principal); H61.21 Impacted cerumen, right ear; I11.0 Hypertensive heart disease with heart failure; I50.9 Heart failure, unspecified; Z79.899 Other long term (current) drug therapy; Z88.8 Allergy status to other drugs, medicaments and biological substances; Z86.14 Personal history of Methicillin resistant Staphylococcus aureus infection
CPT/HCPCS: 36415; 80048; 84484; 85025; 93005; 99283

== ENCOUNTER 2020-11-25 12:06 | Day surgery (SDC) | payer MEDICARE, OTHER ==
[2020-11-24 08:39] VITALS: BMI 43.0
[~2020-11-25 12:06] MED LIST: DEXAMETHASONE SOD PHOSPHATE 4 MG/ML 1 ML VIAL IV ONE; LACTATED RINGERS 1,000 ML IV SCH; LIDOCAINE 1% (10MG/ML) FOR IV START INTRADERMA PRN; ONDANSETRON 4 MG/2 ML VIAL IVP ONE; ceFAZolin 3 GM in SODIUM CHLORIDE 0.9% 100 ML IVPB PRN
[2020-11-25] MEDS ORDERED: MIDAZOLAM 2 MG/2 ML VIAL ONE (13:14)
[2020-11-25] MEDS ORDERED: PHENYLEPHRINE-0.9% NACL SYG 1,000 MCG/10 ML SYRINGE ONE (13:14)
[2020-11-25] MEDS ORDERED: ePHEDrine SULFATE/0.9% NACL/PF 50 MG/5 ML SYRINGE IV ONE (13:14)
[2020-11-25] MEDS ORDERED: PROPOFOL 10 MG/ML 20 ML VIAL IV ONE (13:14)
[2020-11-25] MEDS ORDERED: fentaNYL (PF) 50 MCG/ML 2 ML AMP ONE (13:14)
[2020-11-25] MEDS ORDERED: SUCCINYLCHOLINE CHLORIDE 100 MG/5 ML SYR IV ONE (13:14)
[2020-11-25] MEDS ORDERED: LIDOCAINE 1% INJ 10MG/ML (20 ML MDV) ONE (13:14)
[2020-11-25] MEDS ORDERED: BUPIVACAINE (PF) 0.25% 30 ML VIAL SQ ONE ×2 (13:44→14:30)
--- NOTE | 2020-11-25 15:00 | P.OP ---
Date of Procedure: 11/25/20 Preoperative Diagnosis: Hallux abductovalgus deformity left foot Postoperative Diagnosis: Same Procedure(s) Performed: Cardenas bunionectomy left foot and arthrodesis procedure second toe left foot Anesthesia: MEAGHAN Surgeon: Flo Jo Estimated Blood Loss (ml): 6 Description of Procedure: On the date of surgery the patient was taken to the operating room in good condition placed on the operating table in a supine position where an IV was started and general anesthetic agents were administered lesion was supplemented intraoperatively using 18 mL of 0.25% plain Marcaine given and first ray Han type block and second digit block to 9 dressings. Patient's left foot and ankle were then prepped and draped in the usual aseptic manner and over heavy web roll padding an ankle tourniquet had been placed above the malleoli of the patient's left ankle the patient's left foot and ankle were elevated and exsanguinated of blood and after approximately 1 minutes. A time the ankle tourniquet was inflated to approximately 250 mmHg At this time attention was directed to the dorsal aspect of the first metatarsal phalangeal joint where an approximately 6 cm dorsal linear incision was made the incision was was deepened via sharp dissection down through the level of subcutaneous tissue layers all neurovascular structures encountered were identified isolated and were retracted and any bleeding vessels were clamped and electrocauterized Periosteal Structures Which Were Incised in Line with the Original Skin Incision and Underscored and Retracted from the Underlying Bone. Normal anatomy was not seen due to the fact that this is the third time she's had this procedure performed subcutaneous tissues were basically just thick scar tissue. Lysing oscillating bone saw the hyperostosis that was still present on the medial side of the head of the first metatarsal was resected flush in line with the shaft of the first metatarsal and removed in total from the surgical site at this point in time attention was directed to the distal aspect of the incision where the base of the proximal phalanx at a distance of approximately 1 cm distal from the metatarsal phalangeal joint was osteotomized in the base of the proximal phalanx was removed from the surgical site osteal structures were attempted to be sutured in such a manner that they were puckered in the space rated by the removal of the base of the proximal phalanx. Increase range of motion was seen there was still a strong lateral pole from the issues on the lateral side of the first metatarsal phalangeal joint widening to pull the hallux in a valgus position again. A lateral capsulotomy procedure was performed at this point in time. Cutaneous tissues were then coaptated and maintained utilizing 20 and 3-0 Vicryl simple interrupted suture the skin was then closed utilizing 4-0 nylon simple interrupted suture At this point in time attention was directed to the dorsal aspect of the second toe left foot where an approximately 2.5 cm linear incision was made the incision was deepened via sharp dissection down through the level of the subcutaneous tissue layers all neurovascular structures encountered were identified isolated and were retracted and any bleeding vessels were clamped electrocauterized the extensor digitorum longus tendon was then severed the level of the proximal interphalangeal joint the collateral ligaments on either side of the joint were incised sharply and the head of the proximal phalanx was developed through the incision site it was resected it a 90 angle to the shaft and removed in total from the surgical site utilizing oscillating bone saw the base of the proximal phalanx was then created of the cartilage present there. K wires were driven distally through the middle and distal phalanx and then retrograded back into the proximal phalanx holding the digit in a rectus position. The extensor digitorum longus tendon were then coaptated and ma intained in this with 3-0 Vicryl simple interrupted suture and the skin was closed utilizing 4-0 nylon simple interrupted suture after Kerlix fluffs soaked in Betadine four-inch conformer and 4 inch Coban was used to form a compression dressing the ankle tourniquet to the patient's left ankle was deflated and adequate hemostatic return was seen in all digits patient's left foot specifically the hallux and the second toe the patient tolerated the surgeries and anesthesia well was taken recovery room in good postoperative condition
[2020-11-25 15:02] VITALS: TEMP 98.2
[2020-11-25 16:47] VITALS: BP 133/77; PULSE 75; RESP 20
== END 2020-11-25 17:10 | disposition home or self-care (01) ==
LOC: OR 12:06
PROVIDERS: ATTEND Podiatrist Foot & Ankle Surgery
DX: M20.12 Hallux valgus (acquired), left foot (principal); M20.42 Other hammer toe(s) (acquired), left foot; I10 Essential (primary) hypertension; E78.5 Hyperlipidemia, unspecified; E07.9 Disorder of thyroid, unspecified; N28.9 Disorder of kidney and ureter, unspecified; T75.3XXA Motion sickness, initial encounter
CPT/HCPCS: 28292; 28750; 64450; 88304; 88311; C1713; J2250; J1100; J0690; J2405; J2001; J3010; J2370; J0330; J2704

== ENCOUNTER 2021-02-24 12:32 | Day surgery (SDC) | payer MEDICARE, OTHER ==
[2021-02-22 15:02] VITALS: BMI 43.8
[~2021-02-24 12:32] MED LIST changes: -DEXAMETHASONE SOD PHOSPHATE 4 MG/ML 1 ML VIAL IV ONE; +HYDROmorphone 0.5 MG/0.5 ML SYRINGE IVP PRN; -LIDOCAINE 1% (10MG/ML) FOR IV START INTRADERMA PRN; -ONDANSETRON 4 MG/2 ML VIAL IVP ONE
[2021-02-24] MEDS ORDERED: LIDOCAINE 1% INJ 10MG/ML (20 ML MDV) ONE (13:40)
[2021-02-24] MEDS ORDERED: SUCCINYLCHOLINE CHLORIDE 100 MG/5 ML SYR IV ONE (13:40)
[2021-02-24] MEDS ORDERED: ROCURONIUM 10 MG/ML (5 ML VIAL) IV ONE (13:40)
[2021-02-24] MEDS ORDERED: PROPOFOL 10 MG/ML 20 ML VIAL IV ONE (13:40)
[2021-02-24] MEDS ORDERED: NEOSTIGMINE 1 MG/ML 10 ML VIAL ONE (13:40)
[2021-02-24] MEDS ORDERED: GLYCOPYRROLATE 0.2 MG/ML 2 ML VIAL ONE (13:40)
[2021-02-24] MEDS ORDERED: fentaNYL (PF) 50 MCG/ML 2 ML AMP ONE (13:40)
[2021-02-24] MEDS ORDERED: BUPIVACAINE (PF) 0.25% 30 ML VIAL SQ ONE ×2 (14:12→14:42)
--- NOTE | 2021-02-24 14:57 | P.OP ---
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 Postoperative Diagnosis: Same Procedure(s) Performed: Cardenas bunionectomy right foot Phalangectomy proximal phalangeal joint second toe right foot Anesthesia: GETA Surgeon: Flo Jo Operative Findings: Unremarkable Description of Procedure: On the date of surgery the patient operating room in good condition placed on the operating table supine position where general anesthetic agents were administered patient's right foot and ankle were then prepped and draped in usual aseptic manner and over heavy web roll padding an ankle tourniquet was placed above the malleoli of the patient's right ankle patient's right foot and ankle were then elevated and exsanguinated of blood and after approximately 1 minutes. A time ankle tourniquet was inflated approximately 250 mmHg at this time attention was directed to the dorsal aspect of the first metatarsal phalangeal joint where an approximately 6 cm dorsal linear incision was made incision was deepened via sharp dissection down through the level of subcutaneous tissue layers all neurovascular structures encountered were identified isolated and were retracted and any bleeding vessels were clamped electrocauterized dissection was then carried deep down to level of the Periosteal Structures Overlying the Distal Aspect of the First Metatarsal Shaft and the Base of the Proximal Phalanx. These Were Incised in Line with the Original Skin Incision and Periosteal Structures Were Underscored and Retracted from the Underlying Bone Utilizing Oscillating Bone Saw an Osteotomy Was Performed and a Dorsal to Plantar Manner Distal to the Metatarsal Phalangeal Joint by Approximately 1 Cm the Base of the Proximal Phalanx Was Dissected Free and Removed in Total from the Surgical Site. Throughout the Surgical Site Copious Amounts Sterile Saline Solution Was Used To Irrigate the Surgical Area. Flexor Hallucis Longus Tendon Was Not Disrupted by Removal of the Base of the Proximal Phalanx Utilizing 3-0 Vicryl suture capsule and periosteal structures were sutured in a puckered manner within the space created by the removal of the base of the proximal phalanx Periosteal Structures Were Then Coapted and Maintained Utilizing 3-0 Vicryl Simple Opted Suture and the Skin Was Closed Utilizing 4-0 Nylon Simple Interrupted Suture at This Point in Time Attention Was Directed to the Second Digit of the Right Foot Where an Approximately 0.5 Cm Linear Incision Was Made the Incision Was Made Directly over the Dorsal Medial Side of the Proximal Interphalangeal Joint Dissection Was Carried Deep down to Level Periosteal Structures These Were Incised in Line with the Original Skin Incision and Underscored and Retracted from the Underlying Bone Utilizing Bone Ronjair's Hyper Ostosis on the Medial Side of the Proximal Interphalangeal Joint Was Craterized Skin Was Coapted and Maintained Utilizing 4-0 Nylon Simple Interrupted Suture 12 ML of 0.25% Plain Marcaine Was Infiltrated in a Han Block in a Digital Block to the First Ray and Second Digit of the Right Foot Adaptic Kerlix Fluffs Four-Inch Conformer and 4 Inch Coban Was Used To Form a Compression Dressing Ankle Tourniquet to the Patient's Right Ankle Was Deflated Adequate Hemostatic Return Was Seen in All Digits the Patient's Right Foot. Tolerated the Surgery and Anesthesia Well Was Taken Recovery Room in Good Postoperative Condition.
[2021-02-24] MEDS ORDERED: ONDANSETRON 4 MG/2 ML VIAL ONE (15:06)
[2021-02-24] MEDS ORDERED: HYDROmorphone 0.5 MG/0.5 ML SYRINGE IVP ONE (15:06)
[2021-02-24] MEDS ORDERED: MORPHINE SULFATE 4 MG/ML SYRINGE ONE (15:08)
[2021-02-24 15:09] VITALS: TEMP 98.4
[2021-02-24] MEDS ORDERED: ONDANSETRON 4 MG/2 ML VIAL IVP ONE (15:10)
[2021-02-24] MEDS: MORPHINE SULFATE 4MG/4ML SYRG IV ONE ×2 (15:13→15:23)
[2021-02-24 16:11] VITALS: RESP 16
[2021-02-24 16:36] VITALS: BP 112/67; PULSE 55
== END 2021-02-24 17:02 | disposition home or self-care (01) ==
LOC: OR 12:32
PROVIDERS: ATTEND Podiatrist Foot & Ankle Surgery
DX: M20.5X1 Other deformities of toe(s) (acquired), right foot (principal); I10 Essential (primary) hypertension; E07.9 Disorder of thyroid, unspecified; M41.9 Scoliosis, unspecified
CPT/HCPCS: 28289; J2710; J0690; J2405; J2001; J3010; J0330; J2704; J2270; 88304; 88311